=== PATIENT | female | born 1995 | race Caucasian/White ===

== ENCOUNTER 2018-10-06 10:45 | Inpatient (IN) ==
[2018-10-06] MEDS ORDERED: ONDANSETRON 4 MG/2 ML VIAL IV PRN (10:59)
[2018-10-06] MEDS ORDERED: BUTORPHANOL 2 MG/ML VIAL IV PRN (10:59)
[2018-10-06] MEDS ORDERED: MEPERIDINE 50 MG/1 ML VIAL IV PRN (10:59)
[2018-10-06] MEDS ORDERED: OXYTOCIN/LR 20 UNIT/1,000 ML BAG IV SCH (11:00)
[2018-10-06 11:30] LABS: Basophils % 0.2 % (0.0-0.8); Eosinophils % 0.1 % (0.00-10.9); Hematocrit 37.2 VOL% (35.7-47.0); Hemoglobin 12.1 GM/DL (12.0-16.0); Immature Granulocytes % 0.6 %; Immature Granulocytes Absolute 0.07 #; Lymphocytes # 1.7 10*3/uL (1.4-4.0); Lymphocytes % 14.5 % (21.3-54.2); Mean Corpuscular HGB Conc 32.5 GM/DL (32-36); Mean Corpuscular Hemoglobin 29 PG (27-34); Mean Corpuscular Volume 90.1 FL (87-102); Mean Platelet Volume 11.2 FL (9.6-12.0); Monocytes # 0.8 10*3/uL (0.11-0.8); Monocytes % 6.9 % (1.7-12.7); Neutrophils # 9.4 10*3/uL (1.4-7.4); Neutrophils % 77.7 % (38.7-73.9); Platelet Count 232 T/CUMM (130-400); Red Blood Count 4.13 MC/CUMM (3.8-5.5); Red Cell Distribution Width 12.4 % (9.3-17.3)
[2018-10-06 11:50] LABS: Alanine Aminotransferase 13 U/L (13-56); Alkaline Phosphatase 122 U/L (45-117); Aspartate Amino Transferase 5 U/L (0-37); Bilirubin,Total < 0.39 MG/DL (0.2-1.0); Blood Urea Nitrogen 6 MG/DL (7-18); Calcium 8.7 MG/DL (8.5-10.1); Glucose 96 MG/DL (74-106); Osmolality,Calculated 267.1 MOS/KG (273-304); Potassium 3.3 MMOL/L (3.5-5.1); Sodium 135 MMOL/L (136-145); Total Protein 7.5 G/DL (6.4-8.3)
[2018-10-06] MEDS ORDERED: AMPICILLIN INJ 2,000 MG in SODIUM CHLORIDE 0.9% 100 ML IV ONE (11:52)
[2018-10-06] MEDS ORDERED: PROMETHAZINE 25 MG/1 ML VIAL IM ONE (11:53)
[2018-10-06] MEDS ORDERED: CITRIC ACID/SODIUM CITRATE 30 ML UDCUP PO ONE (11:53)
[2018-10-06] MEDS ORDERED: ONDANSETRON 4 MG/2 ML VIAL IV ONE (11:53)
[2018-10-06] MEDS ORDERED: LACTATED RINGERS 1,000 ML IV ONE (11:53)
[2018-10-06] MEDS ORDERED: ePHEDrine 50 MG/ML AMP IV PRN (11:53)
[2018-10-06] MEDS ORDERED: FAMOTIDINE 20 MG/2 ML VIAL IV ONE (11:53)
[2018-10-06] MEDS ORDERED: NALOXONE 0.4 MG/ML VIAL IV PRN (11:53)
[2018-10-06] MEDS ORDERED: hydrOXYzine HCL 25 MG/1 ML VIAL IM PRN (11:53)
[2018-10-06] MEDS ORDERED: diphenhydrAMINE 50 MG/1 ML VIAL IV PRN ×2 (11:53)
[2018-10-06] MEDS ORDERED: fentaNYL 2 MCG/ROPIV 0.2% EPID 100 ML EPIDURAL SCH (12:00)
[2018-10-06] MEDS: LACTATED RINGERS 1,000 ML IV SCH ×2 (12:31→13:32)
[2018-10-06 13:45] LABS: Apearance,Urine CLEAR (Clear); Bilirubin,Urine Negative (Negative); Blood, Urine Negative (Negative); Glucose,Urine (UA) Negative (Negative); Ketones,Urine Negative (Negative); Mucus,Urine Occasional /LPF (Occasional); Nitrite,Urine Negative (Negative); Protein,Urine Negative; RBC,Urine <1 /HPF (0-4); Urine Color Straw (Yellow); Urine Specific Gravity 1.008 (1.001-1.035); Urine Urobilinogen < 2.0 EU/DL (0.2-1.0); WBC,Urine <1 /HPF (0-6)
[2018-10-06] MEDS ORDERED: AMPICILLIN INJ 1,000 MG in SODIUM CHLORIDE 0.9% 100 ML IV SCH (16:00)
[2018-10-06] MEDS ORDERED: miSOPROStol 200 MCG TABLET ONE (16:04)
[2018-10-06] MEDS ORDERED: LIDOCAINE 1% 50 ML VIAL ONE (16:04)
[2018-10-06 17:42] LABS: Cord Arterial Blood HCO3 20.7 MMOL/L; Cord Venous Blood HCO3 24.4 MMOL/L; Cord Venous Blood PCO2 41.1 MMHG; Cord Venous Blood PO2 38.1 MMHG
[2018-10-06] MEDS ORDERED: ACETAMINOPHEN 325 MG TABLET PO PRN (18:25)
[2018-10-06] MEDS ORDERED: WITCH HAZEL PADS 100/JAR TOP PRN (18:25)
[2018-10-06] MEDS ORDERED: oxyCODONE/ACETAMINOPHEN 5-325 MG TABLET PO PRN ×2 (18:25)
[2018-10-06] MEDS ORDERED: HYDROCORTISONE 2.5% RECTAL CREAM 30 GM TUBE TOP PRN (18:25)
[2018-10-06] MEDS ORDERED: BISACODYL 10 MG SUPP RECTAL PRN (18:25)
[2018-10-06] MEDS ORDERED: BENZOCAINE 20%/MENTHOL 0.5% SPRAY 56 GM CAN TOP PRN (18:25)
[2018-10-06] MEDS ORDERED: RHO(D) IMMUNE GLOBULIN 300 MCG SYRINGE IM ONE (18:25)
[2018-10-06] MEDS ORDERED: MEASLES/MUMPS/RUBELLA VACCINE 0.5 ML VIAL SUBCUT ONE (18:25)
[2018-10-06] MEDS ORDERED: DIPH/TET/ACEL PERT BOOSTER VACCINE 0.5 ML VIAL IM ONE (18:25)
[2018-10-06] MEDS ORDERED: LANOLIN 50% CREAM 0.3 OZ TUBE TOP PRN (18:25)
[2018-10-06] MEDS ORDERED: ACETAMINOPHEN/CODEINE 300-30 MG TABLET PO PRN (18:25)
[2018-10-06] MEDS: IBUPROFEN 800 MG TABLET PO PRN (19:59)
[2018-10-06] MEDS: DOCUSATE SODIUM 100 MG CAPSULE PO SCH (23:14)
[2018-10-07 05:51] LABS: Basophils % 0.2 % (0.0-0.8); Eosinophils % 0.2 % (0.00-10.9); Hemoglobin 9.5 GM/DL (12.0-16.0); Immature Granulocytes % 0.5 %; Immature Granulocytes Absolute 0.06 #; Lymphocytes # 2.1 10*3/uL (1.4-4.0); Lymphocytes % 17.3 % (21.3-54.2); Mean Corpuscular HGB Conc 31.7 GM/DL (32-36); Mean Corpuscular Hemoglobin 29 PG (27-34); Mean Corpuscular Volume 91.2 FL (87-102); Mean Platelet Volume 11.2 FL (9.6-12.0); Monocytes # 1.1 10*3/uL (0.11-0.8); Monocytes % 8.8 % (1.7-12.7); Neutrophils # 8.9 10*3/uL (1.4-7.4); Platelet Count 182 T/CUMM (130-400); Red Blood Count 3.29 MC/CUMM (3.8-5.5); Red Cell Distribution Width 12.5 % (9.3-17.3); White Blood Count 12.2 T/CUMM (4-12)
[2018-10-07] MEDS: IBUPROFEN 800 MG TABLET PO PRN ×3 (08:03→21:26)
[2018-10-07] MEDS: FERROUS SULFATE 325 MG TABLET PO SCH ×2 (08:59→21:24)
[2018-10-07] MEDS: DOCUSATE SODIUM 100 MG CAPSULE PO SCH ×2 (09:00→21:24)
[2018-10-08] MEDS: IBUPROFEN 800 MG TABLET PO PRN ×2 (07:43→14:56)
[2018-10-08] MEDS: FERROUS SULFATE 325 MG TABLET PO SCH (08:50)
[2018-10-08] MEDS: DOCUSATE SODIUM 100 MG CAPSULE PO SCH (08:51)
[2018-10-08 11:27] VITALS: BP 117/69
== END 2018-10-08 15:10 | disposition home or self-care (01) | DRG 560 ==
LOC: N.LDOUT 10:45 → N.LD 10:47 → N.OB 18:24
PROVIDERS: ADMIT Obstetrics & Gynecology; ATTEND Obstetrics & Gynecology